=== PATIENT | male | born 1955 | race Caucasian/White ===

== ENCOUNTER 2022-07-24 21:02 | Inpatient (IN) | payer MEDICARE, BC ==
[2022-07-24 21:55] VITALS: BMI 23.3
[2022-07-24] MEDS ORDERED: Acetaminophen 325 MG TAB PO PRN (22:23)
[2022-07-24] MEDS ORDERED: Acetaminophen 650 MG Suppository PR PRN (22:23)
[2022-07-24] MEDS ORDERED: Ondansetron PF 4 MG/2 ML Vial IVP PRN (22:23)
[2022-07-24] MEDS ORDERED: Ondansetron ODT 4 MG TAB PO PRN (22:23)
[2022-07-25] MEDS: Sodium Chloride 0.9% 1,000 ML IV SCH ×4 (05:42→21:41)
[2022-07-25 06:32] LABS: #Eosinphils 0.2 thou/uL (0.0-0.7); #Lymphocytes 1.6 thou/uL (1.20-3.40); #Monocytes 1.2 thou/uL (0.11-0.59); #Neutrophils 6.2 thou/uL (1.40-6.50); %Basophils 0.4 % (0.0-1.0); %Eosinophils 2.1 % (0.0-10.0); %Lymphocytes 17.6 % (21.0-51.0); %Monocytes 12.6 % (0.0-10.0); %Neutrophils 67.2 % (42.0-75.0); Hemoglobin 14.3 g/dL (14.0-18.0); Mean Corpuscular HGB CONC 31.8 g/dL (32.0-36.0); Mean Corpuscular Hemoglobin 29.7 pg (27.0-31.0); Mean Corpuscular Volume 93.2 fl (78.0-98.0); Mean Platelet Volume 9.2 fL (7.4-10.4); Platelet Count 192 10x3/uL (130-400); RBC Distribution Width 13.1 % (11.5-14.5); Red Blood Cell (RBC) Count 4.83 mill/uL (4.70-6.10); White Blood Cell (WBC) Count 9.3 10x3/uL (4.8-10.8)
[2022-07-25 06:53] LABS: Anion Gap 12 mmol/L (10-20); BUN (Urea Nitrogen) 13 mg/dL (8.4-25.7); Calc. Creatinine Clearance 74 mL/min (70-130); Calcium 8.3 mg/dL (7.8-10.44); Carbon Dioxide 23 mmol/L (23-31); Chloride 105 mmol/L (98-107); Estimated GFR 94; Glucose 97 mg/dL (80-115); Potassium 4.6 mmol/L (3.5-5.1); Sodium 135 mmol/L (136-145)
[2022-07-25 16:26] VITALS: TEMP 97.8
[2022-07-25] MEDS ORDERED: Atorvastatin Calcium 40 MG TAB PO SCH (21:00)
[2022-07-25] MEDS: Carvedilol 3.125 MG TAB PO SCH (21:41)
[2022-07-26 05:02] LABS: #Eosinphils 0.5 thou/uL (0.0-0.7); #Monocytes 0.9 thou/uL (0.11-0.59); #Neutrophils 4.6 thou/uL (1.40-6.50); %Basophils 0.3 % (0.0-1.0); %Eosinophils 5.9 % (0.0-10.0); %Lymphocytes 24.7 % (21.0-51.0); %Monocytes 11.4 % (0.0-10.0); %Neutrophils 57.6 % (42.0-75.0); Mean Corpuscular HGB CONC 33.4 g/dL (32.0-36.0); Mean Corpuscular Hemoglobin 31.2 pg (27.0-31.0); Mean Corpuscular Volume 93.4 fl (78.0-98.0); Mean Platelet Volume 9.5 fL (7.4-10.4); Platelet Count 154 10x3/uL (130-400); RBC Distribution Width 13.1 % (11.5-14.5); Red Blood Cell (RBC) Count 4.18 mill/uL (4.70-6.10)
[2022-07-26 07:49] VITALS: BP 187/83
[2022-07-26] MEDS: Carvedilol 3.125 MG TAB PO SCH (08:29)
[2022-07-26] MEDS ORDERED: Aspirin 81 mg Enteric Coated Tablet PO SCH (09:00)
[2022-07-26] MEDS ORDERED: Fish Oil 1,000 MG CAP PO SCH (09:00)
[2022-07-26] MEDS ORDERED: Ciprofloxacin 500 MG TAB PO SCH (09:00)
[2022-07-26] MEDS ORDERED: Lisinopril/Hydrochlorothiazide 10 mg/12.5 mg Tablet PO SCH (09:00)
== END 2022-07-26 14:24 | disposition home or self-care (01) | DRG 205 ==
LOC: T4-B 21:39 → OBSVTOIN 07-25 05:04
PROVIDERS: ADMIT Family Medicine; ATTEND Internal Medicine
DX: J95.89 Other postprocedural complications and disorders of respiratory system, not elsewhere classified (principal); J96.01 Acute respiratory failure with hypoxia; K56.7 Ileus, unspecified; J98.11 Atelectasis; E87.1 Hypo-osmolality and hyponatremia; K91.89 Other postprocedural complications and disorders of digestive system; J43.9 Emphysema, unspecified; N40.1 Benign prostatic hyperplasia with lower urinary tract symptoms; R33.8 Other retention of urine; Y83.8 Other surgical procedures as the cause of abnormal reaction of the patient, or of later complication, without mention of misadventure at the time of the procedure; E78.5 Hyperlipidemia, unspecified; I10 Essential (primary) hypertension; K59.00 Constipation, unspecified; Z79.82 Long term (current) use of aspirin; Z79.899 Other long term (current) drug therapy; Z87.891 Personal history of nicotine dependence; Z90.79 Acquired absence of other genital organ(s)
CPT/HCPCS: 36415; 80048; 85025; 87324; 87449; G0378; J1650; J7050

== ENCOUNTER 2023-01-19 19:36 | Inpatient (IN) | payer MEDICARE, BC ==
[2023-01-19] MEDS ORDERED: Dextrose 5% in Water 1,000 ML IV PRN (20:59)
[2023-01-19] MEDS ORDERED: Promethazine HCl 25 MG/ML VIAL IM PRN (20:59)
[2023-01-19] MEDS ORDERED: Ipratropium/Albuterol 3 ML NEB NEB PRN (20:59)
[2023-01-19] MEDS ORDERED: Sodium Chloride 0.9% 1,000 ML IV SCH (20:59)
[2023-01-19] MEDS ORDERED: Dextrose 50% Abboject 50 ML SYRINGE SLOW IVP PRN (20:59)
[2023-01-19] MEDS ORDERED: hydrALAZINE 20 MG/ML VIAL SLOW IVP PRN (20:59)
[2023-01-19] MEDS ORDERED: Milk Of Magnesia 30 ML UDCUP PO ONE (20:59)
[2023-01-19] MEDS ORDERED: Ondansetron PF 4 MG/2 ML Vial IVP PRN (20:59)
[2023-01-19] MEDS ORDERED: Glucagon 1 MG/ML KIT IM PRN (20:59)
[2023-01-19] MEDS: Morphine 4 MG/ML VIAL SLOW IVP PRN ×2 (21:20→23:53)
[2023-01-19] MEDS: Famotidine/PF 20 mg/2ml Vial SLOW IVP SCH (21:21)
[2023-01-19] MEDS: Carvedilol 3.125 MG TAB PO SCH (21:21)
[2023-01-19] MEDS: Famotidine 20 MG TAB PO SCH (21:21)
[2023-01-19 21:40] VITALS: BMI 26.2
[2023-01-19] MEDS: Ketorolac Tromethamine 30 MG/ML VIAL IVP PRN (23:54)
[2023-01-20] MEDS ORDERED: methylPREDNISolone Sod Succ 40 MG VIAL IVP SCH (00:15)
[2023-01-20] MEDS: Ipratropium/Albuterol 3 ML NEB NEB SCH ×6 (00:34→21:36)
[2023-01-20] MEDS: Azithromycin 500 MG in Sodium Chloride 0.9% 250 ML 250 ML IVPB SCH (00:37)
[2023-01-20 01:11] LABS: Troponin I 0.046 ng/mL (< 0.028)
[2023-01-20 03:27] LABS: #Eosinphils 0.1 thou/uL (0.0-0.7); #Monocytes 0.4 thou/uL (0.11-0.59); #Neutrophils 8.6 thou/uL (1.40-6.50); %Basophils 0.3 % (0.0-1.0); %Eosinophils 1.3 % (0.0-10.0); %Monocytes 3.5 % (0.0-10.0); %Neutrophils 86.4 % (42.0-75.0); Hematocrit 38.8 % (42.0-52.0); Hemoglobin 12.8 g/dL (14.0-18.0); Mean Corpuscular Hemoglobin 30.2 pg (27.0-31.0); Mean Corpuscular Volume 91.5 fl (78.0-98.0); Mean Platelet Volume 11.3 fL (7.4-10.4); Platelet Count 144 10x3/uL (130-400); RBC Distribution Width 13.3 % (11.5-14.5); Red Blood Cell (RBC) Count 4.24 mill/uL (4.70-6.10)
[2023-01-20 03:56] LABS: Anion Gap 16 mmol/L (10-20); BUN (Urea Nitrogen) 14 mg/dL (8.4-25.7); Calc. Creatinine Clearance 86 mL/min (70-130); Calcium 8.2 mg/dL (7.8-10.44); Carbon Dioxide 23 mmol/L (23-31); Cardiac Risk 2.9 (Less than 4.5); Chloride 98 mmol/L (98-107); Cholesterol 135 mg/dl (< 200 Desired); Estimated GFR 96; Glucose 116 mg/dL (80-115); HDL Cholesterol 46 mg/dL (>60 Neg Risk); LDL Cholesterol, Calculated 73 mg/dL; Potassium 4.7 mmol/L (3.5-5.1); Sodium 132 mmol/L (136-145); Triglycerides 78 mg/dL (Less than 150)
[2023-01-20] MEDS: Polyethylene Glycol 3350 17 GM Packet PO SCH (08:33)
[2023-01-20] MEDS: Carvedilol 3.125 MG TAB PO SCH ×2 (08:33→19:54)
[2023-01-20] MEDS: Famotidine 20 MG TAB PO SCH ×2 (08:33→19:54)
[2023-01-20] MEDS: predniSONE 20 MG TAB PO SCH (08:33)
[2023-01-20] MEDS: Aspirin 81 mg Enteric Coated Tablet PO SCH (08:33)
[2023-01-20] MEDS: Famotidine/PF 20 mg/2ml Vial SLOW IVP SCH ×2 (08:33→19:05)
[2023-01-20] MEDS ORDERED: Iopamidol-370 76% 500 ML MDV (1 ML CHARGE) ONE (15:55)
[2023-01-20] MEDS: Lisinopril/Hydrochlorothiazide 10 mg/12.5 mg Tablet PO SCH (17:42)
[2023-01-20] MEDS: Atorvastatin Calcium 40 MG TAB PO SCH (19:54)
[2023-01-20] MEDS: Acetaminophen 325 MG TAB PO PRN (20:05)
[2023-01-20] MEDS ORDERED: Bisacodyl 10 MG SUPP PR PRN (20:15)
[2023-01-21] MEDS: Azithromycin 500 MG in Sodium Chloride 0.9% 250 ML 250 ML IVPB SCH (00:33)
[2023-01-21] MEDS: Ipratropium/Albuterol 3 ML NEB NEB SCH ×6 (02:03→21:19)
[2023-01-21 04:23] LABS: #Eosinphils 0.1 thou/uL (0.0-0.7); #Monocytes 1.2 thou/uL (0.11-0.59); #Neutrophils 8.2 thou/uL (1.40-6.50); %Basophils 0.3 % (0.0-1.0); %Lymphocytes 14.1 % (21.0-51.0); %Monocytes 10.4 % (0.0-10.0); %Neutrophils 73.5 % (42.0-75.0); Hematocrit 38.1 % (42.0-52.0); Hemoglobin 12.6 g/dL (14.0-18.0); Mean Corpuscular HGB CONC 33.1 g/dL (32.0-36.0); Mean Corpuscular Hemoglobin 30.4 pg (27.0-31.0); Mean Platelet Volume 11.4 fL (7.4-10.4); Platelet Count 151 10x3/uL (130-400); RBC Distribution Width 13.2 % (11.5-14.5); Red Blood Cell (RBC) Count 4.14 mill/uL (4.70-6.10); White Blood Cell (WBC) Count 11.2 10x3/uL (4.8-10.8)
[2023-01-21 04:38] LABS: Anion Gap 12 mmol/L (10-20); BUN (Urea Nitrogen) 14 mg/dL (8.4-25.7); Calc. Creatinine Clearance 78 mL/min (70-130); Calcium 8.8 mg/dL (7.8-10.44); Carbon Dioxide 29 mmol/L (23-31); Chloride 96 mmol/L (98-107); Estimated GFR 93; Glucose 104 mg/dL (80-115); Potassium 4.1 mmol/L (3.5-5.1); Sodium 133 mmol/L (136-145)
[2023-01-21 08:40] LABS: ALT (SGPT) 12 U/L (8-55); AST (SGOT) 19 U/L (5-34); Albumin 3.8 g/dL (3.4-4.8); Alkaline Phosphatase 63 U/L (40-110); Bilirubin, Direct 0.3 mg/dL (0.1-0.3); Bilirubin, Total 0.5 mg/dL (0.2-1.2); Lipase 15 U/L (8-78); Protein, Total 6.4 g/dL (5.8-8.1)
[2023-01-21] MEDS: Aspirin 81 mg Enteric Coated Tablet PO SCH (09:38)
[2023-01-21] MEDS: Polyethylene Glycol 3350 17 GM Packet PO SCH (09:38)
[2023-01-21] MEDS: Famotidine 20 MG TAB PO SCH ×2 (09:38→21:09)
[2023-01-21] MEDS: Carvedilol 3.125 MG TAB PO SCH ×2 (09:38→21:10)
[2023-01-21] MEDS: Famotidine/PF 20 mg/2ml Vial SLOW IVP SCH ×2 (09:40→21:10)
[2023-01-21] MEDS: Acetaminophen 325 MG TAB PO PRN ×2 (09:47→18:38)
[2023-01-21] MEDS: predniSONE 20 MG TAB PO SCH (10:28)
[2023-01-21] MEDS: Lisinopril/Hydrochlorothiazide 10 mg/12.5 mg Tablet PO SCH (14:18)
[2023-01-21] MEDS ORDERED: Piperacillin/Tazobactam 3.375 GM in Sodium Chloride 0.9% 100 ML IVPB SCH ×2 (17:15→18:00)
[2023-01-21] MEDS: Piperacillin/Tazobactam 3.375 GM in Sodium Chloride 0.9% 100 ML IVPB SCH (21:10)
[2023-01-21] MEDS: Atorvastatin Calcium 40 MG TAB PO SCH (21:14)
[2023-01-21] MEDS: Ketorolac Tromethamine 30 MG/ML VIAL IVP PRN (23:49)
[2023-01-22] MEDS: Ipratropium/Albuterol 3 ML NEB NEB SCH ×6 (02:04→21:45)
[2023-01-22] MEDS: Azithromycin 500 MG in Sodium Chloride 0.9% 250 ML 250 ML IVPB SCH (03:37)
[2023-01-22 04:06] LABS: #Eosinphils 0.5 thou/uL (0.0-0.7); #Neutrophils 5.5 thou/uL (1.40-6.50); %Basophils 0.3 % (0.0-1.0); %Eosinophils 5.9 % (0.0-10.0); %Lymphocytes 19.7 % (21.0-51.0); %Monocytes 10.9 % (0.0-10.0); %Neutrophils 62.6 % (42.0-75.0); Hematocrit 36.6 % (42.0-52.0); Hemoglobin 12.2 g/dL (14.0-18.0); Mean Corpuscular HGB CONC 33.3 g/dL (32.0-36.0); Mean Corpuscular Volume 89.9 fl (78.0-98.0); Mean Platelet Volume 11.3 fL (7.4-10.4); Platelet Count 143 10x3/uL (130-400); RBC Distribution Width 13.1 % (11.5-14.5); Red Blood Cell (RBC) Count 4.07 mill/uL (4.70-6.10); White Blood Cell (WBC) Count 8.8 10x3/uL (4.8-10.8)
[2023-01-22] MEDS: Piperacillin/Tazobactam 3.375 GM in Sodium Chloride 0.9% 100 ML IVPB SCH ×3 (05:59→20:26)
[2023-01-22 06:59] LABS: Albumin 3.4 g/dL (3.4-4.8); Anion Gap 9 mmol/L (10-20); BUN (Urea Nitrogen) 13 mg/dL (8.4-25.7); Bilirubin, Total 0.9 mg/dL (0.2-1.2); Calc. Creatinine Clearance 78 mL/min (70-130); Calcium 8.3 mg/dL (7.6-10.4); Carbon Dioxide 30 mmol/L (23-31); Chloride 95 mmol/L (98-107); Estimated GFR 93; Globulin 2.5 g/dL (2.4-3.5); Glucose 90 mg/dL (80-115); Potassium 3.9 mmol/L (3.5-5.1); Protein, Total 5.9 g/dL (5.8-8.1); Sodium 130 mmol/L (136-145)
[2023-01-22 07:00] LABS: ALT (SGPT) 12 U/L (8-55); AST (SGOT) 15 U/L (5-34); Alkaline Phosphatase 61 U/L (40-110); Magnesium 1.8 mg/dL (1.6-2.6)
[2023-01-22] MEDS ORDERED: Mineral Oil PER (1 ML CHG) PO SCH (08:30)
[2023-01-22] MEDS: Aspirin 81 mg Enteric Coated Tablet PO SCH (08:59)
[2023-01-22] MEDS: Famotidine 20 MG TAB PO SCH ×2 (08:59→20:25)
[2023-01-22] MEDS: Carvedilol 3.125 MG TAB PO SCH ×2 (09:01→20:25)
[2023-01-22] MEDS: Lisinopril/Hydrochlorothiazide 10 mg/12.5 mg Tablet PO SCH (09:02)
[2023-01-22] MEDS: Polyethylene Glycol 3350 17 GM Packet PO SCH (09:02)
[2023-01-22] MEDS: Famotidine/PF 20 mg/2ml Vial SLOW IVP SCH ×2 (09:04→20:38)
[2023-01-22] MEDS ORDERED: MINERAL OIL 30 ML UDCUP PO SCH (10:00)
[2023-01-22] MEDS ORDERED: GoLYTELY 4,000 ml Bottle PO SCH (12:15)
[2023-01-22] MEDS ORDERED: Lisinopril 5 MG TAB PO SCH (14:15)
[2023-01-22] MEDS: Atorvastatin Calcium 40 MG TAB PO SCH (20:25)
[2023-01-22] MEDS: HYDROcodone/Acetaminophen 7.5/325 mg Tablet PO PRN (22:30)
[2023-01-23] MEDS: Ipratropium/Albuterol 3 ML NEB NEB SCH ×3 (01:28→10:01)
[2023-01-23 04:52] LABS: #Basophils 0.1 thou/uL (0.0-0.2); #Eosinphils 0.5 thou/uL (0.0-0.7); #Monocytes 1.1 thou/uL (0.11-0.59); %Basophils 0.5 % (0.0-1.0); %Eosinophils 4.8 % (0.0-10.0); %Lymphocytes 18.9 % (21.0-51.0); %Neutrophils 63.2 % (42.0-75.0); Hematocrit 40.2 % (42.0-52.0); Hemoglobin 13.7 g/dL (14.0-18.0); Mean Corpuscular HGB CONC 34.1 g/dL (32.0-36.0); Mean Corpuscular Hemoglobin 30.4 pg (27.0-31.0); Mean Corpuscular Volume 89.3 fl (78.0-98.0); Mean Platelet Volume 11.2 fL (7.4-10.4); Platelet Count 185 10x3/uL (130-400); RBC Distribution Width 13.1 % (11.5-14.5); White Blood Cell (WBC) Count 9.5 10x3/uL (4.8-10.8)
[2023-01-23 05:18] LABS: ALT (SGPT) 14 U/L (8-55); AST (SGOT) 14 U/L (5-34); Albumin 3.7 g/dL (3.4-4.8); Alkaline Phosphatase 71 U/L (40-110); Anion Gap 15 mmol/L (10-20); BUN (Urea Nitrogen) 12 mg/dL (8.4-25.7); Calc. Creatinine Clearance 77 mL/min (70-130); Calcium 8.9 mg/dL (7.8-10.44); Carbon Dioxide 25 mmol/L (23-31); Chloride 96 mmol/L (98-107); Estimated GFR 93; Globulin 2.9 g/dL (2.4-3.5); Glucose 86 mg/dL (80-115); Potassium 4.1 mmol/L (3.5-5.1); Protein, Total 6.6 g/dL (5.8-8.1); Sodium 132 mmol/L (136-145)
[2023-01-23] MEDS: HYDROcodone/Acetaminophen 7.5/325 mg Tablet PO PRN (05:25)
[2023-01-23] MEDS: Piperacillin/Tazobactam 3.375 GM in Sodium Chloride 0.9% 100 ML IVPB SCH (05:25)
[2023-01-23 08:06] VITALS: BP 179/86; TEMP 98
[2023-01-23] MEDS: Acetaminophen 325 MG TAB PO PRN (08:08)
[2023-01-23] MEDS: Carvedilol 3.125 MG TAB PO SCH (08:09)
[2023-01-23] MEDS: Famotidine 20 MG TAB PO SCH (08:09)
[2023-01-23] MEDS: Aspirin 81 mg Enteric Coated Tablet PO SCH (08:09)
[2023-01-23] MEDS: Famotidine/PF 20 mg/2ml Vial SLOW IVP SCH (08:09)
[2023-01-23] MEDS: Polyethylene Glycol 3350 17 GM Packet PO SCH (08:09)
[2023-01-23] MEDS ORDERED: Lisinopril 10 MG TAB PO SCH (09:00)
[2023-01-23] MEDS ORDERED: Lisinopril/Hydrochlorothiazide 20 mg/12.5 mg Tablet PO SCH (09:00)
== END 2023-01-23 10:42 | disposition home or self-care (01) | DRG 388 ==
LOC: SURG A 20:33 → 2NO 01-20 02:18 → OBSVTOIN 01-21 11:24
PROVIDERS: ADMIT Surgery; ATTEND Family Medicine
DX: K56.49 Other impaction of intestine (principal); J96.01 Acute respiratory failure with hypoxia; J44.1 Chronic obstructive pulmonary disease with (acute) exacerbation; J90 Pleural effusion, not elsewhere classified; J98.11 Atelectasis; L03.311 Cellulitis of abdominal wall; E87.1 Hypo-osmolality and hyponatremia; I5A Non-ischemic myocardial injury (non-traumatic); I25.10 Atherosclerotic heart disease of native coronary artery without angina pectoris; I10 Essential (primary) hypertension; E78.5 Hyperlipidemia, unspecified; K21.9 Gastro-esophageal reflux disease without esophagitis; G89.18 Other acute postprocedural pain; I07.1 Rheumatic tricuspid insufficiency; Z98.890 Other specified postprocedural states; Z87.891 Personal history of nicotine dependence
CPT/HCPCS: 36415; 36416; 71045; 71275; 74018; 80048; 80053; 80061; 80076; 83690; 83735; 84145; 84484; 85025; 85379; 86850; 86900; 86901; 93005; 93010; 93306; 94640; 96365; 96372; 96375; 96376; G0378; J0456; J1650; J1885; J2270; J2405; J2543; J2920; J3490; J7050; J7512; J7620; Q9967; S0028